=== PATIENT | male | born 1965 | race Caucasian/White ===

== ENCOUNTER 2018-10-26 13:26 | Emergency (ER) | payer OTHER | END 2018-10-26 14:32 | disposition home or self-care (01) | LOC: E/R 14:32 | DX: M25.572 Pain in left ankle and joints of left foot (principal); E11.9 Type 2 diabetes mellitus without complications; I10 Essential (primary) hypertension; Z79.84 Long term (current) use of oral hypoglycemic drugs | CPT/HCPCS: 73610; 73610-RT; 99283 ==